=== PATIENT | female | born 1935 | race African-American/Black ===

== ENCOUNTER 2021-10-23 07:06 | Observation (INO) | payer MEDICARE ==
[2021-10-19 11:06] LABS: BASOPHILS % 0.2 % (0.0-1.0); EOSINOPHILS # (AUTO) 0.1 (0.0-0.4); EOSINOPHILS % 1.3 % (0.0-6.0); HEMATOCRIT 40.9 % (34.2-44.1); HEMOGLOBIN 12.9 g/dL (12.0-16.0); LYMPHOCYTES # (AUTO) 1.3 (1.0-3.2); LYMPHOCYTES % 27.5 % (18.0-39.1); MEAN CORPUSCULAR HGB CONC 31.5 g/dL (31-35); MEAN CORPUSCULAR VOLUME 98.3 fL (81-99); MONOCYTES # (AUTO) 0.5 (0.2-0.8); MONOCYTES % 11.1 % (4.4-11.3); NEUTROPHILS # (AUTO) 2.8 (2.1-6.9); NEUTROPHILS % 59.7 % (38.7-80.0); PLATELET COUNT 184 x10e3/uL (140-360); RED BLOOD COUNT 4.16 x10e6/uL (3.6-5.1); RED CELL DISTRIBUTION WIDTH 13.5 % (11.7-14.4)
[~2021-10-23] VITALS: Ht 165.1 cm; Wt 65.8 kg
[~2021-10-23 07:06] MED LIST: CARVEDILOL12.5 MG PO; CELECOXIB 200 MG CAP ONE; DEXAMETHASONE SOD PHOS 10 MG/1 ML VIAL ONE; GABAPENTIN 300 MG CAP ONE; HYDRALAZINE HCL50 MG PO; HYDROCODON-ACE1 EA11 PO; SODIUM CHLORIDE 0.9% 500ML 500 ML ONE; TRANEXAMIC ACID 20 ML ONE; TRIAMTERENE-HC1 EAC1 PO; Vancomycin IV 1,000 MG ONE; XARELTO10 MG PO
[2021-10-23] MEDS ORDERED: ROPIVACAINE 246.25 MG, EPINEPHRINE HCL 1:1000 1ML 0.5 MG, CLONIDINE HCL 0.08 MG, KETORO... INJ ONE ×5 (07:30)
[2021-10-23] MEDS: SODIUM CHLORIDE 0.9% 1000ML 1,000 ML IV SCH ×3 (08:45→18:45)
[2021-10-23] MEDS ORDERED: KETOROLAC TROMETHAMINE 30 MG/ML VIAL IV PRN (08:45)
[2021-10-23] MEDS ORDERED: HYDROCODONE/APAP 7.5MG-325MG 1 EA TAB PO PRN (08:45)
[2021-10-23] MEDS ORDERED: ONDANSETRON HCL INJ 2MG/ML 2ML 2 MG/ML VIAL IV PRN (08:45)
[2021-10-23] MEDS ORDERED: ZOLPIDEM TARTRATE 5 MG TAB PO PRN (08:45)
[2021-10-23] MEDS ORDERED: ACETAMINOPHEN 650 MG SUPP PR PRN (08:45)
[2021-10-23] MEDS ORDERED: DIPHENHYDRAMINE HCL INJ 50 MG/ML VIAL IV PRN (08:45)
[2021-10-23] MEDS ORDERED: DOCUSATE SODIUM 100 MG CAP PO PRN (08:45)
[2021-10-23] MEDS ORDERED: HYDROCODONE/APAP 5MG-325MG TAB PO PRN (08:45)
[2021-10-23] MEDS: ASPIRIN 325 MG TAB PO SCH ×2 (09:00→16:53)
[2021-10-23] MEDS ORDERED: POVIDONE IODINE 0.05% 0.05 % ML PO ONE (11:44)
[2021-10-23] MEDS ORDERED: LIDOCAINE HCL 2% LOCAL INJ 5 ML SDV VIAL INJ ONE (11:44)
[2021-10-23] MEDS ORDERED: DEXAMETHASONE SOD PHOS INJ 4 MG/ML SDV ONE (11:44)
[2021-10-23] MEDS ORDERED: GLYCOPYRROLATE INJ 0.2 MG/ML VIAL ONE (11:44)
[2021-10-23] MEDS ORDERED: SEVOFLURANE INHAL SOLN 250 ML PEN BTL ONE (11:44)
[2021-10-23] MEDS ORDERED: ONDANSETRON HCL INJ 2MG/ML 2ML 2 MG/ML VIAL ONE (11:44)
[2021-10-23] MEDS ORDERED: PROPOFOL IV EMULSION 10 MG/ML 20 ML VIAL ONE (11:44)
[2021-10-23] MEDS ORDERED: EPHEDRINE SULFATE INJ 50 MG/ML VIAL ONE (11:44)
[2021-10-23] MEDS ORDERED: ROPIVACAINE 0.5% 5 MG/ML 30 ML SDV ONE (12:46)
[2021-10-23] MEDS ORDERED: LIDOCAINE HCL 2% LOCAL 20 ML VIAL ONE (12:46)
[2021-10-23] MEDS ORDERED: FENTANYL CITRATE/PF 100MCG/2 ML INJ ONE (13:51)
[2021-10-23 14:42] VITALS: BP 125/68
[2021-10-23 14:46] VITALS: BP 125/68
[2021-10-23 15:20] VITALS: BP 125/68
[2021-10-23] MEDS: CELECOXIB 200 MG CAP PO SCH (16:53)
[2021-10-23 20:00] VITALS: BP 130/70
[2021-10-23 21:00] VITALS: BP 130/70
[2021-10-24] VITALS: BP 124/62
[2021-10-24 04:00] VITALS: BP 121/70
[2021-10-24 05:37] LABS: HEMATOCRIT 40.1 % (34.2-44.1); HEMOGLOBIN 12.3 g/dL (12.0-16.0)
[2021-10-24] MEDS ORDERED: CARVEDILOL 12.5 MG TAB PO SCH (08:00)
[2021-10-24 08:24] VITALS: BP 131/63
[2021-10-24] MEDS ORDERED: ACETAMINOPHEN 1000 MG/100 ML IV PRN (08:45)
[2021-10-24 08:50] VITALS: BP 131/63
[2021-10-24] MEDS: ASPIRIN 325 MG TAB PO SCH (09:34)
[2021-10-24] MEDS: SODIUM CHLORIDE 0.9% 1000ML 1,000 ML IV SCH (09:34)
[2021-10-24] MEDS: CELECOXIB 200 MG CAP PO SCH (09:34)
== END 2021-10-24 10:40 | disposition home or self-care (01) ==
LOC: OR 07:06 → PACU V 09:03 → MED/SURG 14:19 → MED/SURG2 14:21
PROVIDERS: ADMIT Specialist; ATTEND Specialist
DX: M17.0 Bilateral primary osteoarthritis of knee (principal); I10 Essential (primary) hypertension; Z01.818 Encounter for other preprocedural examination; Z20.822 Contact with and (suspected) exposure to COVID-19; D64.9 Anemia, unspecified
CPT/HCPCS: 0223U; 36415; 71046; 85014; 85018; 85025; 86850; 86900; 86920; 93005; C1713; C1776; G0378; J0171; J0690; J1100; J1885; J2001; J2405; J2795; J3010; J3370; J7030; J7040

== ENCOUNTER 2021-12-02 15:17 | Emergency (ER) | payer MEDICARE ==
[~2021-12-02] VITALS: Ht 165.1 cm; Wt 65.8 kg
[~2021-12-02 15:17] MED LIST changes: -CELECOXIB 200 MG CAP ONE; -DEXAMETHASONE SOD PHOS 10 MG/1 ML VIAL ONE; -GABAPENTIN 300 MG CAP ONE; -SODIUM CHLORIDE 0.9% 500ML 500 ML ONE; -TRANEXAMIC ACID 20 ML ONE; -Vancomycin IV 1,000 MG ONE
[2021-12-02 16:13] LABS: BASOPHILS % 0.2 % (0.0-1.0); EOSINOPHILS # (AUTO) 0.1 (0.0-0.4); EOSINOPHILS % 1.2 % (0.0-6.0); HEMATOCRIT 39.1 % (34.2-44.1); HEMOGLOBIN 12.4 g/dL (12.0-16.0); LYMPHOCYTES # (AUTO) 0.9 (1.0-3.2); LYMPHOCYTES % 8.1 % (18.0-39.1); MEAN CORPUSCULAR HEMOGLOBIN 30.2 pg (28-32); MEAN CORPUSCULAR HGB CONC 31.7 g/dL (31-35); MEAN CORPUSCULAR VOLUME 95.4 fL (81-99); MONOCYTES # (AUTO) 0.9 (0.2-0.8); MONOCYTES % 8.5 % (4.4-11.3); NEUTROPHILS # (AUTO) 8.6 (2.1-6.9); NEUTROPHILS % 81.6 % (38.7-80.0); PLATELET COUNT 302 x10e3/uL (140-360); RED CELL DISTRIBUTION WIDTH 14.6 % (11.7-14.4)
[2021-12-02 16:43] LABS: ALBUMIN 2.7 g/dL (3.5-5.0); ALBUMIN/GLOBULIN RATIO 0.5 (0.8-2.0); CREATININE, SERUM 0.86 mg/dL (0.57-1.11)
[2021-12-02] MEDS ORDERED: IOPAMIDOL 370 MG/ML 100 ML INFUS..BTL INJ ONE (17:29)
[2021-12-02] MEDS ORDERED: AZITHROMYCIN250 MG PO (20:07)
[2021-12-02 20:33] VITALS: BP 136/63
== END 2021-12-02 20:28 | disposition home or self-care (01) ==
LOC: ER 15:26
DX: R06.00 Dyspnea, unspecified (principal); J18.9 Pneumonia, unspecified organism; J90 Pleural effusion, not elsewhere classified; Z20.822 Contact with and (suspected) exposure to COVID-19
CPT/HCPCS: 36415; 71045; 71260; 80053; 83880; 84484; 85025; 85379; 93005; 99284; Q9967; U0002